=== PATIENT | female | born 1960 | race Caucasian/White ===

== ENCOUNTER 2018-05-03 06:34 | Day surgery (SDC) | payer OTHER ==
[~2018-05-03 06:34] MED LIST: CATAFLAM50 MG PO; CIPRO500 MG PO; INTESTINEX1 CA1 PO; OXYC1TAB9 PO; PANTOPRAZOLE SO40 MG PO
== END 2018-05-03 09:55 | disposition home or self-care (01) ==
LOC: AMB-ENDOS 06:34
DX: K64.8 Other hemorrhoids (principal); K57.30 Diverticulosis of large intestine without perforation or abscess without bleeding